=== PATIENT | male | born 1990 | race Caucasian/White ===

== ENCOUNTER 2021-10-13 21:49 | Emergency (ER) | payer OTHER ==
[~2021-10-13] VITALS: Ht 180.3 cm; Wt 69.2 kg
[~2021-10-13 21:49] MED LIST: ALBU2.5V8 IH; ESOM40CA
--- NOTE | 2021-10-13 22:52 | PHYS DOC ---
Past History Past Medical History: Asthma, GERD Past Surgical History: No Surgical History Smoking: Greater than 1 pack/day Alcohol Use: Occasionally Drug Use: None Adult General Chief Complaint Chief Complaint: DIZZY/LIGHT HEADED HPI HPI Patient is an a 30-year-old male with seasonal allergies on [place] Thyroid who presents with a chief complaint of lightheadedness off and on over the last 4 days. States he had a coworker 4 days ago that was diagnosed with COVID. States he took a couple of tests at home and came out negative. Denies any recent traumas, travels, fever, rash, sore throat, nasal drainage, cough, chest pain, shortness of breath, abdominal pain, nausea, vomiting, diarrhea. Review of Systems Review of Systems Review of systems otherwise unremarkable except noted in HPI Allergies Allergies Allergies Coded Allergies Type Severity Reaction Last Updated Verified hydrocodone Adverse Reaction Intermediate Itching 08/22/13 Yes Physical Exam Physical Exam Constitutional: Well developed, well nourished, no acute distress, non-toxic appearance. [] HENT: Normocephalic, atraumatic, bilateral external ears normal, left tympanic membrane with some mild serous fluid behind it and some cerumen in the canal, right tympanic membrane with some serous fluid behind it but no findings suggestive of otitis media. Oropharynx moist, no oral exudates, nose normal. [] Eyes: PERRLA, EOMI, conjunctiva normal, no discharge. [] Neck: Normal range of motion, no tenderness, supple, no stridor. [] Cardiovascular:Heart rate regular rhythm, no murmur [] Lungs & Thorax: No respiratory distress Skin: Warm, dry, no erythema, no rash. [] Extremities: No tenderness, no cyanosis, no clubbing, ROM intact, no edema. [] Neurologic: Alert and oriented X 3, normal motor function, normal sensory function, no focal deficits noted. [] Psychologic: Affect normal, judgement normal, mood normal. [] EKG EKG [] Radiology/Procedures Radiology/Procedures [] Heart Score C/O Chest Pain: No Risk Factors: Risk Factors: DM, Current or recent (<one month) smoker, HTN, HLP, family history of CAD, obesity. Risk Scores: Risk Factors: DM, Current or recent (<one month) smoker, HTN, HLP, family history of CAD, obesity. Course & Med Decision Making Course & Med Decision Making Patient is a 30-year-old male who comes in for chief complaint of lightheadedne ss Vital signs nonconcerning. Physical exam noted above. EKG with normal rate, normal rhythm, no STEMI. Laboratory analysis not concerning. Patient remained asymptomatic in the ED. Discussed all findings with patient. Advised to follow-up with primary care physician as soon as possible. Given work note for tomorrow. Discussed COVID quarantine guidelines Gave return precautions to the ED. Patient grateful, verbalized understanding and agreed with plan of discharge [] Dragon Disclaimer Dragon Disclaimer This electronic medical record was generated, in whole or in part, using a voice recognition dictation system. Departure Departure: Impression: Primary Impression: Lightheaded Disposition: 01 HOME / SELF CARE / HOMELESS Condition: STABLE Referrals: PCP,LATOSHA (PCP) ADILSON MONZON MD Patient Instructions: Dizziness Additional Instructions: Thank you for coming into the emergency department tonight and allowing us to take care of you. Please read the attached information carefully to go over things we discussed. Please continue to take Tylenol, ibuprofen and Benadryl at home. You can take 50 mg of Benadryl every 6 hours. Please clean your ears the way we discussed and do not stick anything in them. You are given a work note for tomorrow to allow rest and recovery and allow for quarantine as you have had COVID exposure. Please follow-up as soon as you can with your primary care physician update on your ED visit and set up a follow-up visit as you can. Please come back with new or concerning symptoms as discussed KAUSHAL CARDOZA MD October 13, 2021 22:52
[2021-10-14 00:03] LABS: CALCIUM 9.3 mg/dL (8.5-10.1); CREATININE 1.1 mg/dL (0.7-1.3); GFR 79.1
[2021-10-14 00:30] VITALS: BP 108/56
[2021-10-14 00:38] LABS: POTASSIUM 3.6 mmol/L (3.5-5.1)
[2021-10-14] MEDS ORDERED: MULTIVITAMIN (08:27)
[2021-10-14] MEDS ORDERED: allegra (08:27)
== END 2021-10-14 00:54 | disposition home or self-care (01) ==
LOC: ER 21:49
DX: R42 Dizziness and giddiness (principal); J45.909 Unspecified asthma, uncomplicated; K21.9 Gastro-esophageal reflux disease without esophagitis; F17.200 Nicotine dependence, unspecified, uncomplicated; Z20.822 Contact with and (suspected) exposure to COVID-19; Z88.5 Allergy status to narcotic agent
CPT/HCPCS: 36415; 80048; 93005; 99284; C9803; U0003